=== PATIENT | male | born 1990 | race Two or more races ===

== ENCOUNTER 2021-03-23 12:14 | Emergency (ER) | payer MEDICAID ==
[~2021-03-23] VITALS: Ht 180.3 cm; Wt 72.6 kg
[2021-03-23 12:19] VITALS: BP 129/77
[2021-03-23] MEDS ORDERED: LIDOCAINE 2% (LOCAL ANESTH.) PF 5ml SDV ONE (16:21)
[2021-03-23] MEDS ORDERED: LIDOCAINE 1% HCL (LOCAL ANESTH.) INJ 20ML MDV ONE (16:23)
== END 2021-03-23 17:25 | disposition home or self-care (01) ==
LOC: ER 12:14
DX: S01.112A Laceration without foreign body of left eyelid and periocular area, initial encounter (principal); W22.8XXA Striking against or struck by other objects, initial encounter; Y93.89 Activity, other specified; Y92.89 Other specified places as the place of occurrence of the external cause; Y99.8 Other external cause status
CPT/HCPCS: 12011; 99283; J2001